=== PATIENT | male | born 1935 | race Caucasian/White ===

== ENCOUNTER → 2018-03-09 | Outpatient (CLI) | payer OTHER ==
[~2018-03-09] MED LIST: ACETAMINOPHEN-1 EAC1 PO; ASPIR 8181 MG PO; BACTRIM DS TAB1 EACH PO; CEPHALEXIN 500500 M3 PO; IRON325 PO; NORVASC10 MG PO; TERAZOSIN HCL10 MG PO; VITAMIN B12; VITAMIN B6; VITAMIN E; VITAMINC500 PO
== END ==
LOC: M.CT 08:28
DX: N21.0 Calculus in bladder (principal); R97.20 Elevated prostate specific antigen [PSA]

== ENCOUNTER → 2018-03-24 | Outpatient (CLI) | payer OTHER ==
[2018-03-24] VITALS (10 sets, daily range): BP systolic 99–142; BP diastolic 49–74
[~2018-03-24] VITALS: Ht 165.1 cm; Wt 70.3 kg
--- NOTE | 2018-03-31 17:08 | PATH ---
[address] [address] PATHOLOGY RPT PROCEDURE Name: CHACHO COBIAN Room: [facility] Rodgers#: [id number] Admission: 03/24/18 Date of : 35 Discharge: Report #: [id number] Path Case #: [id number] LCA Accession Number: [id number] . 01 Material submitted: . INTRA ABDOMINAL MASS . 01 Clinical history: . Abdominal mass, 1100 . 02 Diagnosis: Intra-abdominal mass, image guided core biopsies: - EPITHELIAL NEOPLASM WITH LOW-GRADE PAPILLARY FEATURES AND FOCAL STROMAL HEMOSIDERIN DEPOSITION INDICATIVE OF RECENT HEMORRHAGE (SEE COMMENT). QTP03/25/2018 . 02 Comment: Sections show fragments of an epithelial neoplasm noted to show scattered papillary features lined by consistently low-grade monotonous epithelial cells having round nuclei with moderate amounts of amphophilic cytoplasm and seen in single layers as well as up to 4 to 5 cell layers thick. There is a vague neuroendocrine appearance and there is no necrosis or mucinous features seen. Mitotic activity is difficult to identify. The clinical presentation of a well circumscribed 9.0 x 8.2 x 7.7 cm solid and inhomogeneous mass in the head and uncinate process of the pancreas, inseparable from the duodenum,the superior mesenteric vein and inferior vena cava (taken from CT report of abdomen/pelvis with contrast, dated 03/09/2018) is noted and classification of this neoplasm is uncertain and it will therefore be submitted to [facility] Department of Surgical Pathology in consultation and an addendum report will be issued. Preliminary findings discussed with Dr. Nelson at approximately 11:52 on 03/25/2018. (SILVIA:jimi 03/25/2018) . 02 Addendum: . Special studies report received from [address] [address], on case [id number], labeled with their number [id number], dated 03/30/2018. . [facility] [place] Pathology Consultation . . Pathology Consult . Interpretation . 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 (See comment.) . COMMENT This is an 83 year old male with well circumscribed a 9.0 x 8.2 x 7.7 cm solid and inhomogeneous mass in the head and uncinate process of the pancreas. . The needle biopsy shows presence of well differentiated neuroendocrine tumor. A panel of immunostains and quantitative Ki-67 labeling index have been performed on the submitted paraffin block. the tumor cells are positive for chromogranin, synaptophysin, Islet 1, and keratin AYLEEN, but negative for inhibin. The tumor cells show 3% Ki-67 labeling index by quantitative imaging analysis. . 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 . ANCILLARY STUDIES Intra abdominal mass, block [id number] . SPECIAL PROCEDURE REPORT Biomarker(s) for: Neuroendocrine tumor or carcinoma . Result(s): Ki-67 labeling index Labeling Index: 3% (3% to 20%) . METHOD AND SCORING Ki-67 (MIB-1) Neuroendocrine Automated Method: Immunohistochemical staining of the Ki-67 antigen in formalin-fixed paraffin-embedded tissue sections has been validated by our laboratory, using the MIB-1 clone and a proprietary detection system. All controls show appropriate reactivity. Ki-67(MIB-1) quantification using the V[employer]IF[employer] system in neuroendocrine tumors (NET) has been validated by our laboratory. Ki-67(MIB-1)-stained slides are scanned using the [employer] ScanScope instrument, which captures digital images of the patient slide. A technologist views the digitized image on a computer monitor and using a rectangle tool available in ImageScope ([employer]), identifies up to ten "hot" regions of the most intensely staining areas within the tumor. The selected areas are then analyzed using an image analysis algorithm that renders the percentage of positive staining tumor nuclei. The slides, images and test results are then reviewed by a pathologist who provides a final interpretation. This test was developed and its performance characteristics determined by [facility] in a manner consistent with CLIA requirements. This test [place] [address] PATHOLOGY RPT PROCEDURE Name: CHACHO COBIAN Room: [facility]#: [id number] Admission: 03/24/18 Date of : 35 Discharge: Report #: [id number] Path Case #: [id number] approved by the U.S. Food and Drug Administration. . Thank you for sharing this case with me. Your submitted material is enclosed. If you have any questions, please do not hesitate to reach me at phone number. . Material Received A. [id number]: Intra abdominal mass 1 stained slide, 1 block . . . Report electronically signed by Magdalena Campo M.D., Ph.D. [phone] I verify that I have examined all relevant slides/materials for the specimen(s) and rendered or confirmed the diagnosis. . Disclaimer This test was developed and its performance characteristics determined by [facility] in a manner consistent with CLIA requirements. This test has not been cleared or approved by the U.S. Food and Drug Administration. . Reported: 30 Mar 2018 16:19 . . A complete copy of the report is on file. . Professional services performed by [facility] [address] [place] [address]. Technical services performed by [facility] [address], [address], [place] [address]. . (AMJ 03/31/2018) AZJ/03/31/2018 Addendum Electronically Signed by Steve Medrano MD, Pathologist . 02 Electronically signed: . Steve Medrano MD, Pathologist NPI- [id number] . 01 Gross description: . Received in formalin labeled "Chacho Cobian, abdominal mass," and additionally labeled on the requisition as "intra," are multiple needle cores of vyas soft tissue measuring 0.8 x 0.2 x 0.1 cm in aggregate dimensions. The specimen is filtered and entirely submitted in cassette A1. (TSD; 03/24/2018) TOB/TOB [address] [address] PATHOLOGY RPT PROCEDURE Name: CHACHO COBIAN Room: [facility]#: [id number] Admission: 03/24/18 Date of : 35 Discharge: Report #: [id number] Path Case #: [id number] . 02 Pathologist provided ICD-10: R19.00 . 02 CPT . 237743 Performed at: 01 [facility] [address], [place], [place] [id number] MD Abdulaziz Hussein MD Phone: [phone] Performed at: 02 [facility] [address] [place], [place] [id number] MD Steve Medrano MD Phone: [phone]
== END | disposition home or self-care (01) ==
LOC: M.CT 09:10 → M.RAD 10:00 → M.CT 10:00 → M.INT 14:00
DX: C76.2 Malignant neoplasm of abdomen (principal); I10 Essential (primary) hypertension; Z98.890 Other specified postprocedural states; Z88.8 Allergy status to other drugs, medicaments and biological substances; Z79.899 Other long term (current) drug therapy; Z79.82 Long term (current) use of aspirin

== ENCOUNTER → 2018-06-24 | Outpatient (CLI) | payer OTHER | LOC: M.CT 08:12 | DX: D3A.8 Other benign neuroendocrine tumors (principal); J98.11 Atelectasis; K44.9 Diaphragmatic hernia without obstruction or gangrene; N20.9 Urinary calculus, unspecified ==

== ENCOUNTER → 2018-08-28 | Outpatient (CLI) | payer OTHER | LOC: M.CT 08:16 | DX: K44.9 Diaphragmatic hernia without obstruction or gangrene (principal); N21.0 Calculus in bladder; D3A.8 Other benign neuroendocrine tumors; J84.10 Pulmonary fibrosis, unspecified; I25.10 Atherosclerotic heart disease of native coronary artery without angina pectoris; K86.9 Disease of pancreas, unspecified; I70.0 Atherosclerosis of aorta; N40.0 Benign prostatic hyperplasia without lower urinary tract symptoms ==

== ENCOUNTER → 2018-12-08 | Outpatient (CLI) | payer OTHER | LOC: M.CT 10:03 | DX: J43.9 Emphysema, unspecified (principal); K44.9 Diaphragmatic hernia without obstruction or gangrene; N21.0 Calculus in bladder; D3A.8 Other benign neuroendocrine tumors; G54.3 Thoracic root disorders, not elsewhere classified; G54.4 Lumbosacral root disorders, not elsewhere classified ==

== ENCOUNTER → 2019-01-29 | Outpatient (CLI) | payer OTHER | LOC: M.NUC 09:32 | DX: D3A.8 Other benign neuroendocrine tumors (principal) ==

== ENCOUNTER 2019-02-14 13:51 | Emergency (ER) | payer OTHER ==
[~2019-02-14] VITALS: Ht 165.1 cm; Wt 73.5 kg
[2019-02-14 14:53] LABS: ABSOLUTE EOSINOPHILS 0.1 thou/uL (0.0-0.7); ABSOLUTE LYMPHOCYTES 0.9 thou/uL (0.8-5.3); ABSOLUTE MONOCYTES 0.6 thou/uL (0.0-1.2); ABSOLUTE NEUTROPHILS 7.6 thou/uL (1.6-8.1); BASOPHILS 0.5 %; HEMATOCRIT 39.6 % (42.0-52.0); HEMOGLOBIN 13.1 gm/dL (14.0-18.0); LYMPHOCYTES 10.1 %; MCHC 33.2 g/dL (28.0-37.0); MCV 93.5 fL (80.0-100.0); MONOCYTES 6.8 %; MPV 8.4 fl. (7.2-11.1); NUCLEATED RBCS 0 /100WBC; PLATELET COUNT* 316 thou/uL (150-400); POLYS 81.6 %; RBC 4.23 mil/uL (4.50-6.00); RDW-CV 13.9 % (10.5-14.5); WBC 9.3 thou/uL (4.0-11.0)
[2019-02-14 15:03] LABS: CALCIUM 8.4 mg/dL (8.5-10.1); CREATININE 1.4 mg/dL (0.6-1.3); POTASSIUM 4.3 mmol/L (3.5-5.1)
[2019-02-14 15:07] LABS: ALBUMIN 2.9 g/dL (3.4-5.0); TOTAL BILIRUBIN 0.5 mg/dL (<0.1-1.0); TOTAL PROTEIN 6.8 g/dL (6.4-8.2); URIC ACID* 6.8 mg/dL (2.6-7.2)
[2019-02-14] MEDS ORDERED: NORCO 5-325 TA1 EAC1 PO (15:21)
[2019-02-14 15:29] VITALS: BP 145/74
[2019-02-14 16:00] LABS: ESR (SEDRATE) 28 mm/hr (0-20)
== END 2019-02-14 15:30 | disposition home or self-care (01) ==
LOC: M.ERS 13:51
PROVIDERS: Physician Assistant
DX: M25.531 Pain in right wrist (principal); R73.9 Hyperglycemia, unspecified; L53.9 Erythematous condition, unspecified; I10 Essential (primary) hypertension; Z88.8 Allergy status to other drugs, medicaments and biological substances

== ENCOUNTER 2019-05-29 19:38 | Inpatient (IN) | payer OTHER ==
[~2019-05-29] VITALS: Ht 165.1 cm; Wt 72.6 kg
[~2019-05-29 19:38] MED LIST changes: +NORCO 5-325 TA1 EAC1 PO; -VITAMIN B12; +VITAMIN B12 PO; -VITAMIN B6; +VITAMIN B6 PO; -VITAMIN E; +VITAMIN E PO
[2019-05-29 19:40] VITALS: BP 126/87
[2019-05-29] MEDS ORDERED: PROSCAR 5MG TABL5 MG PO (19:48)
[2019-05-29] MEDS ORDERED: rose hips PO (19:49)
[2019-05-29 20:03] LABS: ABSOLUTE EOSINOPHILS 0.1 thou/uL (0.0-0.7); ABSOLUTE LYMPHOCYTES 1.2 thou/uL (0.8-5.3); ABSOLUTE MONOCYTES 1.3 thou/uL (0.0-1.2); ABSOLUTE NEUTROPHILS 10.5 thou/uL (1.6-8.1); BASOPHILS 0.4 %; EOSINOPHILS 0.7 %; HEMATOCRIT 42.2 % (42.0-52.0); HEMOGLOBIN 14.4 gm/dL (14.0-18.0); LYMPHOCYTES 9.3 %; MCH 31.9 pg (26.0-34.0); MCV 93.8 fL (80.0-100.0); MONOCYTES 10.1 %; MPV 8.1 fl. (7.2-11.1); NUCLEATED RBCS 0 /100WBC; PLATELET COUNT* 334 thou/uL (150-400); POLYS 79.5 %; WBC 13.2 thou/uL (4.0-11.0)
[2019-05-29 20:16] LABS: APTT 27.5 Seconds (25.0-31.3); PROTIME 10.5 Seconds (9.20-11.50)
[2019-05-29 20:23] LABS: ANION GAP 11 mmol/L (7-16); BUN 22 mg/dL (7-18); CALCIUM 8.7 mg/dL (8.5-10.1); CHLORIDE 104 mmol/L (98-107); CO2 24 mmol/L (21-32); CREATININE 1.4 mg/dL (0.6-1.3); GLUCOSE 170 mg/dL (70-99); SODIUM 139 mmol/L (136-145)
[2019-05-29 20:27] LABS: ALBUMIN 3.1 g/dL (3.4-5.0); ALKALINE PHOSPHATASE 67 U/L (46-116); CK-MB MASS 1.1 ng/mL (<0.5-3.6); LIPASE 54 U/L (73-393); MAGNESIUM 1.9 mg/dL (1.8-2.4); NT-PRO BRAIN NAT PEPTIDE 1635 pg/mL (<300); SGOT 13 U/L (15-37); SGPT 19 U/L (30-65); TOTAL BILIRUBIN 0.5 mg/dL (<0.1-1.0); TOTAL PROTEIN 7.1 g/dL (6.4-8.2); TROPONIN-I LEVEL <0.06 ng/mL (<0.06)
[2019-05-29 22:52] VITALS: BP 109/79
[2019-05-29 23:00] VITALS: BP 129/84
[2019-05-29 23:30] VITALS: BP 103/72
[2019-05-30] VITALS (7 sets, daily range): BP systolic 90–120; BP diastolic 51–67
--- NOTE | 2019-05-30 07:46 | NUR ---
PT RECIEVED FROM ED IN . PT HR RUNNING AROUND 140-155'S, CARDIZEM TITRATED NEEDED, WENT INTO AFIB THEN CONVERTED TO SB, CARDIZEM DRIP STOPPED. RUNNING SR THIS AM. DENIES PAIN AND SOB. CALL LIGHT WITHIN REACH AND BED IN LOW POSITION. HOURLY ROUNDING DONE FOR PT SAFETY.
--- NOTE | 2019-05-30 12:28 | NUR ---
ASSUMED PT CARE AT O800, AOX4, UP SBA, O2 SAT 90'S RA, TRACING SR ON TELE. DENIES PAIN. PT FOR DISCHARGE, WAITING FOR CARDIOLOGY CLEARANCE. OFFER FOOD EVERY 3HRS. VSS, AM ASSESSMENT CHARTED, MEDS GIVEN PER MAR, CALL LIGHT WITHIN REACH. WILL CONTINUE TO MONITOR.
[2019-05-30] MEDS ORDERED: DILTIAZEM 24HR240 M1 PO (14:08)
--- NOTE | 2019-05-30 16:18 | NUR ---
DISCHARGE PLAN DISCUSS WITH PT AND . MEDICATION PACKET/SCRIPT GIVEN. IV, TELE REMOVED. REMINDED TO FOLLOW UP CARDIOLOGY. ALL BELONGINGS PACKED AND CHECKED. LEFT THE UNIT 0275.
--- NOTE | 2019-05-30 16:57 | EKG ---
[place] [address] ELECTROCARDIOGRAM REPORT Name: CHACHO WALDEN Room: [address] DIS IN M.R.#: [id number] Admission: 05/29/19 Attend Phys: Tariq Cano MD Discharge: 05/30/19 Date of : 35 Report #: [id number] THIS REPORT FOR: //name// [facility] ED Test Date: 2019-05-29 Test Time: 19:40:03 Pat Name: CHACHO WALDEN Department: Room: [facility] Gender: M Insurance Account Assistant: : 1935 Requested By: Cooper Escalona Order Number: [id number] MD: Ventura Osborn Measurements Intervals [place] Rate: 159 P: 219 TX: 44 QRS: 28 QRSD: 125 T: 55 QT: 356 QTc: 580 Interpretive Statements Atrial flutter with 21 conduction IVCD, consider atypical RBBB Compared to ECG 02/24/2019 15:34:30 Sinus rhythm no longer present Right ventricular hypertrophy no longer present Electronically Signed On 05-30-2019 16:56:57 CDT by Ventura Osborn [email or web address] <ELECTRONICALLY SIGNED> By: Ventura Osborn MD, FACC 05/30/19 1656 39 39 Ventura Osborn MD, FACC /EPI
--- NOTE | 2019-05-31 09:20 | CON ---
[address] [address] CONSULTATION Name: CHACHO WALDEN Room: [address] IN M.R.#: [id number] Admission: 05/29/19 Attend Phys: Tariq Cano MD Discharge: 05/30/19 Date of : 35 Report #: [id number] THIS REPORT FOR: //name// CC: Tariq Oliva MD INDICATION: Supraventricular tachycardia. HISTORY OF PRESENT ILLNESS: The patient is a very pleasant 84-year-old gentleman who has been having intermittent palpitations. Yesterday morning, the palpitations started and were ongoing. The patient presented to the Emergency Room for further evaluation and was found to be in supraventricular tachycardia. He was started on a diltiazem drip and did ultimately convert back to sinus rhythm. He is maintaining sinus rhythm since conversion. He is without specific complaint at this time. He does report having intermittent episodes like this before, but was unable to catch the events by EKG or telemetry. PAST MEDICAL HISTORY: 1. Hypertension. 2. Possible history of atrial fibrillation. 3. Pancreatic tumor. ALLERGIES: MERCURY. MEDICATIONS: Amlodipine 10 mg daily, iron sulfate 325 mg daily, vitamin C 500 mg 2 tablets daily, terazosin 10 mg at bedtime, aspirin 81 mg daily, vitamin B6, vitamin B12, vitamin E daily, finasteride 5 mg daily, Darshana Hips supplement daily. FAMILY HISTORY: Noncontributory. SOCIAL HISTORY: The patient is a lifelong nonsmoker. He does not drink alcohol. PHYSICAL EXAMINATION: VITAL SIGNS: Stable. Blood pressure 111/67, pulse 66 and regular. GENERAL: This is a pleasant gentleman, in no distress. Mood and affect appropriate. HEENT: Extraocular muscles intact. Mucous membranes are moist. NECK: Shows no jugular venous distention. I do not appreciate carotid bruit. CHEST: Reveals clear lung alexis without wheezes, rales, or rhonchi. CARDIOVASCULAR: Reveals regular rhythm with normal S1 and S2. I do not appreciate gallop or murmur. ABDOMEN: Reveals protuberant abdomen, soft and nontender. EXTREMITIES: Shows no edema. Peripheral pulses 2+ [place] [address] CONSULTATION Name: CHACHO WALDEN Room: [address] IN [facility].#: [id number] Admission: 05/29/19 Attend Phys: Tariq Cano MD Discharge: 05/30/19 Date of : 35 Report #: [id number] SKIN: Dry. IMPRESSION AND RECOMMENDATIONS: 1. Paroxysmal supraventricular tachycardia. He is in sinus rhythm presently. Switch from amlodipine to diltiazem CD 240 mg daily. Follow up in the Cardiology office in 2 months. 2. Questionable history of atrial fibrillation. I do not see any evidence of atrial fibrillation at this time. Would not recommend anticoagulation at this time. 3. Hypertension. Blood pressure adequately controlled on amlodipine. We will switch to diltiazem and follow. The patient appears stable for discharge from cardiac standpoint. <ELECTRONICALLY SIGNED> By: Ventura Osborn MD, FACC 05/31/19 0920 1405 [id number] Osborn MD, FACC /nt
== END 2019-05-30 14:55 | disposition home or self-care (01) | DRG 309 ==
LOC: M.ERS 19:38 → M.TBA-ER 21:04 → M.2W 21:46
PROVIDERS: Family Medicine; ADMIT Internal Medicine
DX: I47.1 Supraventricular tachycardia (principal); E44.1 Mild protein-calorie malnutrition; I48.0 Paroxysmal atrial fibrillation; D49.0 Neoplasm of unspecified behavior of digestive system; I10 Essential (primary) hypertension; Z88.8 Allergy status to other drugs, medicaments and biological substances; Z79.899 Other long term (current) drug therapy

== ENCOUNTER 2020-10-16 09:08 | Observation (INO) | payer OTHER ==
[~2020-10-16] VITALS: Ht 165.1 cm; Wt 85.7 kg
[~2020-10-16 09:08] MED LIST changes: +DILTIAZEM 24HR240 M1 PO; +PROSCAR 5MG TABL5 MG PO; +rose hips PO
[2020-10-16 09:09] VITALS: BP 132/58
[2020-10-16] MEDS ORDERED: CARDIA (09:19)
[2020-10-16] MEDS ORDERED: SILVER (09:19)
[2020-10-16] MEDS ORDERED: SPIRONOLACTONE25 MG PO ×2 (09:24→10:25)
[2020-10-16 09:27] LABS: HEMATOCRIT 37.4 % (42.0-52.0); HEMOGLOBIN 12.3 gm/dL (14.0-18.0); MCH 30.9 pg (26.0-34.0); MCHC 32.8 g/dL (28.0-37.0); NUCLEATED RBCS 0 /100WBC; PLATELET COUNT* 306 thou/uL (150-400); RBC 3.98 mil/uL (4.50-6.00); RDW-CV 13.8 % (10.5-14.5); WBC 12.3 thou/uL (4.0-11.0)
[2020-10-16 09:31] LABS: CALCIUM 8.5 mg/dL (8.5-10.1); CREATININE 1.4 mg/dL (0.6-1.3); POTASSIUM 4.3 mmol/L (3.5-5.1)
[2020-10-16 09:40] LABS: APTT 27.1 Seconds (25.0-31.3); PROTIME 10.7 Seconds (9.20-11.50)
[2020-10-16 09:41] LABS: ALBUMIN 3.2 g/dL (3.4-5.0); TOTAL BILIRUBIN 0.3 mg/dL (<0.1-1.0); TOTAL PROTEIN 6.8 g/dL (6.4-8.2)
[2020-10-16 10:12] LABS: ABSOLUTE BASOPHILS 0.1 thou/uL (0.0-0.2); ABSOLUTE LYMPHOCYTES 1.1 thou/uL (0.8-5.3); ABSOLUTE MONOCYTES 0.2 thou/uL (0.0-1.2); ABSOLUTE NEUTROPHILS 10.8 thou/uL (1.6-8.1); METAMYELOCYTES 1 %
--- NOTE | 2020-10-16 10:12 | NUR ---
BREAKFAST WAS ORDERED FOR THE PATIENT. DIETARY WAS INFORMED THAT THE PATIENT IS ALLERGIC TO DAIRY PRODUCTS. DR. LIM IS PUTTING A DIET ORDER IN FOR THE PATIENT AT THIS TIME.
[2020-10-16 10:13] LABS: PLATELET ESTIMATE ADEQUATE
[2020-10-16] MEDS ORDERED: ELIQUIS5 MG PO (10:22)
[2020-10-16] MEDS ORDERED: DIAZEPAM 2MG TAB2 MG PO (10:23)
[2020-10-16] MEDS ORDERED: COLACE100 MG PO (10:23)
[2020-10-16] MEDS ORDERED: TAMBOCOR 100 M100 M1 PO (10:23)
[2020-10-16] MEDS ORDERED: SLOW FE142 MG PO (10:24)
[2020-10-16] MEDS ORDERED: METROCREAM45 GM TOP (10:24)
[2020-10-16] MEDS ORDERED: VITAMIN B-6100 MG PO (10:25)
[2020-10-16] MEDS ORDERED: TERAZOSIN HCL10 MG PO (10:25)
[2020-10-16] MEDS ORDERED: VITAMIN B-121000 MC2 SUBLING (10:26)
[2020-10-16] MEDS ORDERED: VITAMIN C WIT1000 MG PO (10:26)
[2020-10-16] MEDS ORDERED: VITAMIN E1000 UNIT PO (10:26)
[2020-10-16] MEDS ORDERED: BETAMETHASONE D50 G2 TOP (10:28)
--- NOTE | 2020-10-16 10:28 | NUR ---
DUE TO THE PATIENT'S INSULIN PRODUCING TUMOR ON HIS PANCREAS, HE MUST EAT EVERY 3 HOURS OR HIS BLOOD SUGAR FALLS. THE PATIENT REPORTS HE FORGOT TO EAT AT 6:00 THIS MORNING CAUSING CONFUSION AND BLOOD GLUCOSE OF 59.
--- NOTE | 2020-10-16 11:02 | NUR ---
PT GIVEN REGULAR DIET BREAKFAST WITH NO DIARY.
[2020-10-16 11:15] LABS: URINE BILIRUBIN NEGATIVE (Negative); URINE BLOOD 3+ (Negative); URINE CLARITY CLOUDY; URINE COLOR DARK YELLOW; URINE GLUCOSE-RANDOM NEGATIVE (Negative); URINE KETONES NEGATIVE (Negative); URINE LEUKOCYTES-REFLEX TRACE (Negative); URINE NITRITE-REFLEX NEGATIVE (Negative); URINE PROTEIN 1+ (Negative); URINE SPECIFIC GRAVITY >= 1.030 (1.005-1.030); URINE UROBILINOGEN 0.2 E.U./dl (0.2-1.0)
[2020-10-16 11:22] LABS: SQUAMOUS >10 Many /LPF (0-3)
[2020-10-16 11:23] LABS: BACTERIA-REFLEX 1-9 Few /HPF (None Seen); CASTS None Seen /LPF (None Seen); URINE RBC >20 Many /HPF (0-2); URINE WBC-REFLEX 0-5 Rare /HPF (0-5)
[2020-10-16 11:24] LABS: CRYSTALS None Seen /LPF (None Seen); MUCUS 0-3 Light strn/LPF (None Seen)
[2020-10-16 12:00] VITALS: BP 138/61
[2020-10-16 12:07] VITALS: BP 142/41
--- NOTE | 2020-10-16 14:01 | EKG ---
[place] [address] ELECTROCARDIOGRAM REPORT Name: CHACHO WADLEN Room: [address]R.#: [id number] Admission: 10/16/20 Attend Phys: Constanza Roque MD Discharge: Date of : 35 Date of Service: 10/16/20912 Report #: [id number] THIS REPORT FOR: //name// [facility] ED Test Date: 2020-10-16 Test Time: 09:13:57 Pat Name: CHACHO WALDEN Department: Room: [facility] Gender: M Supervisor [employer]: SEMAJ : 1935 Requested By: Guy Willard Order Number: [id number] MD: James Arriaga Measurements Intervals [place] Rate: 56 P: 12 AL: 144 QRS: 0 QRSD: 122 T: 17 QT: 452 QTc: 437 Interpretive Statements Sinus rhythm Nonspecific intraventricular conduction delay Nonspecific T abnormalities, inferior leads Compared to ECG 05/29/2019 19:40:03 T-wave abnormality now present Atrial flutter no longer present Electronically Signed On 10-16-2020 14:01:21 PHARMACOVIGILANCE SPECIALIST by James Arriaga [email or web address] <ELECTRONICALLY SIGNED> By: James Arriaga MD, FAC 10/16/20 1401 2 2 James Arriaga MD, FAC /EPI
--- NOTE | 2020-10-16 14:56 | NUR ---
PT ADMITTED TO ROOM 310 FROM ED VIA CART ACCOMPANIED BY WITH HYPOGLYCEMIA SECONDARY TO PANCREATIC TUMOR. PT AOX4 AND ABLE TO ANSWER APPROPRIATELT. DENIES PAIN. REPORTS HAS TO EAT Q3 HOURS.ALSO HAS MILK ALLERGY. VSS ON RA.BLOOD GLUCOSE ON ADMISSION 213. PT EDUCATED ON TREATMENTS,PLAN OF CARE,ORIENTED TO ROOM,FALL CONTRACT SIGNED.NOTHING FURTHER.CLWR.WCTM
[2020-10-16 16:24] VITALS: BP 145/60
--- NOTE | 2020-10-16 17:20 | NUR ---
PT ASSESSED FOR NEED OF SNACK AND FOUND THAT PT HAD MADE ATTEMPTS TO USE BED CALL LIGHT AND FOUND THAT BED WAS NOT CONNECTED. WAS VERY DISTRAUGHT AND WAS COMFORTED WITH AN ICE BIN OF SNACKS MADE AVAILABLE AT BEDSIDE,CALL LIGHT ISSUES FIXED AND MADE PLAN OF ALARM USE WITH STAFF ABLE TO WAKE PT FOR SNACK EVERY 3 HOURS PER REQUEST BEGINNING AT 1999 THIS EVENING. PACKAGER MADE AWARE OF CIRCUMSTANCES AND RECIFICATION OF SITUATION. NOTHING FURTHER AT THIS TIME.CLWR.WCTM
--- NOTE | 2020-10-16 17:37 | NUR ---
NOTIFIED DIETARY OF NO MILK OR WEBSTER CONTAINING PRODUCTS.
[2020-10-16 21:11] VITALS: BP 142/62
--- NOTE | 2020-10-16 22:07 | NUR ---
PAGED DR. FLETCHER AT 3240 REGARDING ORDERS FOR RESTARTING PATIENT'S HOME MEDICATIONS.
[2020-10-17 04:59] LABS: HEMATOCRIT 36.7 % (42.0-52.0); HEMOGLOBIN 12.2 gm/dL (14.0-18.0); MCH 31.2 pg (26.0-34.0); MCHC 33.2 g/dL (28.0-37.0); MCV 93.9 fL (80.0-100.0); MPV 8.2 fl. (7.2-11.1); RBC 3.91 mil/uL (4.50-6.00); RDW-CV 13.6 % (10.5-14.5)
--- NOTE | 2020-10-17 05:16 | NUR ---
PATIENT SLEEPING ON AND OFF THROUGHOUT SHIFT. BLOOD SUGAR 29 AT 2320. PATIENT LETHARGIC, CONFUSED AND DIAPHORETIC AT THIS TIME. ORAL GLUCOSE GEL GIVEN AT THIS TIME - BLOOD SUGAR 39 @2335. TWO JUICE BOXES, AND PEANUT BUTTER ON CRACKERS CONSUMED BY PATIENT AT THIS TIME. BLOOD SUGAR 75 @2355. PATIENT A & O X4 AT 2355. MONITORED BLOOD SUGAR THROUGH SHIFT Q3 HOURS. SNACKS AND JUICE CONSUMED BY PATIENT Q3 HOURS. BLOOD SUGAR 93 @0500. PATIENT RESTING COMFORTABLY IN BED. WILL CONTINUE TO MONITOR.
[2020-10-17 05:20] LABS: CALCIUM 8.8 mg/dL (8.5-10.1); CREATININE 1.4 mg/dL (0.6-1.3); POTASSIUM 4.6 mmol/L (3.5-5.1)
[2020-10-17 07:20] VITALS: BP 164/75
[2020-10-17 09:31] VITALS: BP 164/75
--- NOTE | 2020-10-17 09:33 | NUR ---
CM COMPLETED INITIAL ASSESSMENT. PT SITTING UP IN BED EATING BREAKFAST. PT IS ACTIVE AND INDEPENDENT W/ADLS. DRIVES OCCASSIONALLY. HAS 0 DMES. PT DENIES HX HH. PT HAS MRI APPT IN OUTPATIENT CLINIC TODAY AT 1300. PT WILL PROVIDE TRANSPORTATION AT D/C.
--- NOTE | 2020-10-17 10:54 | NUR ---
PT GIVEN DISCHARGE INFORMATION. IV REMOVED. PT BELONGINGS GATHERED. PT LEFT VIA WHEELCHAIR WITH NURSING STAFF TO HOME.
== END 2020-10-17 10:55 | disposition home or self-care (01) ==
LOC: M.ERS 09:08 → M.TBA-ER 11:34 → M.3W 12:31
PROVIDERS: Emergency Medicine; ADMIT Family Medicine; ATTEND Family Medicine
DX: E16.2 Hypoglycemia, unspecified (principal); I10 Essential (primary) hypertension; I48.0 Paroxysmal atrial fibrillation; E66.9 Obesity, unspecified; N40.0 Benign prostatic hyperplasia without lower urinary tract symptoms; D13.7 Benign neoplasm of endocrine pancreas; R41.0 Disorientation, unspecified; Z20.822 Contact with and (suspected) exposure to COVID-19

== ENCOUNTER → 2020-10-17 | Outpatient (CLI) | payer OTHER ==
[~2020-10-17] MED LIST changes: +BETAMETHASONE D50 G2 TOP; +CARDIA; +COLACE100 MG PO; +DIAZEPAM 2MG TAB2 MG PO; +ELIQUIS5 MG PO; +METROCREAM45 GM TOP; +SILVER; +SLOW FE142 MG PO; +SPIRONOLACTONE25 MG PO; +TAMBOCOR 100 M100 M1 PO; +VITAMIN B-121000 MC2 SUBLING; +VITAMIN B-6100 MG PO; +VITAMIN C WIT1000 MG PO; +VITAMIN E1000 UNIT PO
== END ==
LOC: M.MRI 12:56
PROVIDERS: ATTEND Internal Medicine Hematology & Oncology
DX: I67.82 Cerebral ischemia (principal); R41.82 Altered mental status, unspecified; D3A.8 Other benign neuroendocrine tumors

== ENCOUNTER → 2021-03-08 | Outpatient (CLI) | payer OTHER ==
[2021-03-08] VITALS (10 sets, daily range): BP systolic 103–139; BP diastolic 52–83
[~2021-03-08] MED LIST changes: +ASCORBIC ACID500 M3 PO; +CARDIZEM CD360 MG PO; +FLOMAX0.4 MG PO; +PROSCAR 5MG TABL5 M1 PO; +VITAMIN B-125000 MCG SUBLING; +VITAMIN E400 UNI5 PO
--- NOTE | 2021-03-08 11:01 | H ---
[place] [address] HISTORY AND PHYSICAL Name: CHACHO WALDEN [id number] Admission: 03/08/21 Attend Phys: Ventura Osborn MD Discharge: Date of : 35 Report #: [id number] THIS REPORT FOR: cc: Suellen Oliva MD,Suellen Osborn,Ventura Delatorre MD [facility] ~ cc: Suellen Oliva MD DATE OF SERVICE: 03/08/2021 ADMISSION HISTORY AND PHYSICAL REASON FOR ADMISSION: Persistent atrial fibrillation. HISTORY OF PRESENT ILLNESS: The patient is a very pleasant 85-year-old gentleman with history of atrial fibrillation that had been paroxysmal. He is presently in atrial fibrillation and has been persistent despite antiarrhythmic therapy. He had interrupted his anticoagulant therapy. He is now back on anticoagulation. The patient is being brought to the hospital for elective transesophageal echocardiogram and possible cardioversion. At this point in time, he is without cardiac complaint. PAST MEDICAL HISTORY: 1. Paroxysmal atrial fibrillation. 2. Hypertension. 3. Insulinoma. 4. History of supraventricular tachycardia. 5. Previous peripheral vascular surgery. FAMILY HISTORY: Noncontributory. SOCIAL HISTORY: The patient is lifelong nonsmoker. He does not drink alcohol. ALLERGIES: MERCURY. HOME MEDICATIONS: Eliquis 5 mg b.i.d., vitamin C 500 mg daily, vitamin B12 2500 mcg daily, Cardizem CD 360 mg daily, Proscar 5 mg daily, flecainide 100 mg b.i.d., [place] 5/325 one tablet q. 4 hours p.r.n., octreotide injection q. 28 days, vitamin B6 100 mg daily, Aldactone 25 mg daily, Hytrin 10 mg at bedtime, vitamin E 800 units daily. REVIEW OF SYSTEMS: Positive for leg swelling, shortness of breath, occasional lightheadedness and dizziness. Otherwise, 14-point review of [place] [address] HISTORY AND PHYSICAL Name: CHACHO WALDEN Room: [facility]#: [id number] Admission: 03/08/21 Attend Phys: Ventura Osborn MD Discharge: Date of : 35 Report #: [id number] PHYSICAL EXAMINATION: VITAL SIGNS: Blood pressure 148/72, pulse is in the 80s and irregular. GENERAL: This is a pleasant gentleman who is in no distress. Mood and affect appropriate. HEENT: Extraocular muscles intact. Mucous membranes are moist. NECK: Shows no jugular venous distention. CHEST: Reveals clear lung alexis. CARDIAC: Reveals an irregularly irregular rhythm with controlled rate. I do not appreciate gallop or murmur. ABDOMEN: Reveals normal bowel sounds. The abdomen is soft and nontender. EXTREMITIES: Shows no edema. SKIN: Warm and dry. IMPRESSION AND RECOMMENDATIONS: 1. Persistent atrial fibrillation. The patient is being brought to the hospital for elective transesophageal echocardiogram and probable cardioversion pending those results. We will continue Eliquis and flecainide at current doses. 2. Hypertension. Blood pressure appears relatively stable at this time. We will continue home regimen. 3. Remote history of supraventricular tachycardia. <ELECTRONICALLY SIGNED> By: Ventura Osborn MD, FACC 03/08/21 1101 0735 [id number] Osborn MD, FACC /nt
--- NOTE | 2021-03-08 11:41 | TEE ---
[place] [address] TRANSESOPHAGEAL ECHOCARDIOGRAM Name: CHACHO WALDEN Room: [facility]#: [id number] Admission: 03/08/21 Attend Phys: Ventura Osborn, Discharge: Date of : 35 Date of Service: 03/08/21 1141 Report #: [id number] THIS REPORT FOR: cc: Suellen Oliva MD, Pamela MD Liston, Michael J. MD [facility] ~ APPROVED REPORT Study performed: 03/08/2021 08:48:06 EXAM: Transesophageal Echocardiogram Patient Location: Out-Patient Status: routine BSA: 1.93 HR: 79 bpm BP: 131/83 mmHg Rhythm: Atrial Flutter Other Information Study Quality: Good Echo Enhancing Agent Indication: Rule out Shunt Agent(s) / Amount(s) Used: Agitated Saline 10 cc Procedure After obtaining informed consent, patient underwent transesophageal echo in the [employer]. Type of Sedation : Conscious Sedation Sedation was administered by Kendra Maria RN. Sedation start time: 850 Case end Time: 900 Sedation was achieved intravenously with: Versed (2) Fentanyl (50) Transesophageal probe was inserted and advanced into esophagus without difficulty by Ventura Osborn MD, FACC. Echo enhancement indication: R/O Septal defect. Echo enhancement agent administered: Agitated Saline The MILY was performed without complications. Synchronized Cardioversion acheived with 360 Joules after 1 attempt(s). Rhythm following Synchronized Cardioversion: Throughout the procedure, the blood pressure, pulse oximetry, cardiac rhythm, and rate were monitored. The patient tolerated the procedure without adverse [place] [address] TRANSESOPHAGEAL ECHOCARDIOGRAM Name: CHACHO WALDEN Room: [facility]#: [id number] Admission: 03/08/21 Attend Phys: Ventura Osborn, Discharge: Date of : 35 Date of Service: 03/08/21 1141 Report #: [id number] from conscious sedation was uneventful and vital signs were stable. Left Ventricle The left ventricle is normal size. There is normal LV segmental wall motion. There is normal left ventricular wall thickness. Left ventricular systolic function is normal. LVEF is 60-65%. Right Ventricle The right ventricle is normal size. The right ventricular systolic function is normal. Atria The left atrium size is normal. No thrombus is visualized in the left atrium or appendage. Small PFO is noted. The right atrium size is normal. Aortic Valve The aortic valve is normal in structure. Trace aortic regurgitation. There is no aortic valvular stenosis. Mitral Valve The mitral valve is normal in structure. Trace mitral regurgitation. No evidence of mitral valve stenosis. Tricuspid Valve Tricuspid valve is not well visualized. Pulmonic Valve Pulmonic valve is not well visualized. Great Vessels The aortic root is normal in size. Pericardium There is no pericardial effusion. <Conclusion> The left ventricle is normal size. There is normal left ventricular wall thickness. Left ventricular systolic function is normal. LVEF is 60-65%. There is normal LV segmental wall motion. No thrombus is visualized in the left atrium or appendage. Small [place] [address] TRANSESOPHAGEAL ECHOCARDIOGRAM Name: CHACHO WALDEN Room: [facility]#: [id number] Admission: 03/08/21 Attend Phys: Ventura Osborn, Discharge: Date of : 35 Date of Service: 03/08/21 1141 Report #: [id number] Trace aortic regurgitation. Trace mitral regurgitation. <ELECTRONICALLY SIGNED> By: Ventura Osborn MD, FACC 03/08/21 1141 114 114 Ventura Osborn MD, FAC /INF
--- NOTE | 2021-03-08 11:50 | EKG ---
[place] [address] ELECTROCARDIOGRAM REPORT Name: CHACHO WALDEN Room: [facility]#: [id number] Admission: 03/08/21 Attend Phys: Ventura Osborn, Discharge: Date of : 35 Date of Service: 03/08/21 0842 Report #: [id number] THIS REPORT FOR: //name// [facility] Test Date: 2021-03-08 Test Time: 08:42:00 Pat Name: CHACHO WALDEN Department: Room: Gender: [employer] Supervisor: : 1935 Requested By: Ventura Osborn Order Number: [id number] Reading MD: Ventura Osborn Measurements Intervals [place] Rate: 89 P: 251 WV: 210 QRS: -60 QRSD: 153 T: 27 QT: 441 QTc: 537 Interpretive Statements Atrial flutter Right bundle branch block Compared to ECG 10/16/2020 09:13:57 Atrial flutter now present Right bundle-branch block now present Sinus rhythm no longer present Electronically Signed On 03-08-2021 11:50:31 CDT by Ventura Osborn [email or web address] <ELECTRONICALLY SIGNED> By: Ventura Osborn MD, FAC 03/08/21 1150 0842 0842 Ventura Osborn MD, [facility] /EPI
== END | disposition home or self-care (01) ==
LOC: M.CL 07:16
PROVIDERS: ATTEND Internal Medicine Cardiovascular Disease
DX: I48.92 Unspecified atrial flutter (principal); I08.0 Rheumatic disorders of both mitral and aortic valves; I48.19 Other persistent atrial fibrillation; I10 Essential (primary) hypertension; Z98.890 Other specified postprocedural states; Z79.899 Other long term (current) drug therapy; Z79.01 Long term (current) use of anticoagulants

== ENCOUNTER → 2021-05-23 | Outpatient (CLI) | payer OTHER | LOC: M.RAD 16:17 | PROVIDERS: ATTEND Internal Medicine Cardiovascular Disease | DX: J98.4 Other disorders of lung (principal); J98.11 Atelectasis; K44.9 Diaphragmatic hernia without obstruction or gangrene ==

== ENCOUNTER → 2021-08-28 | Outpatient (CLI) | payer OTHER | LOC: M.ULTRA 13:23 | PROVIDERS: ATTEND Nurse Practitioner Family | DX: R22.43 Localized swelling, mass and lump, lower limb, bilateral (principal) ==